=== PATIENT | female | born 1955 | race African-American/Black ===

== ENCOUNTER → 2020-06-25 | Outpatient (CLI) | payer OTHER ==
--- NOTE | 2020-06-25 14:42 | XR ---
Lumbar spine HISTORY: Lumbar pain 3 views lumbar spine Lumbar vertebral bodies show preserved height, alignment, and bone mineralization. There is some loss of disc height at L5-S1. Multilevel spondylosis is present. Sclerosis is present in the posterior el ements of the lower lumbar spine. Atherosclerotic vascular calcifications are present in the aorta il iac distribution. IMPRESSION: Degenerative disc disease and facet arthropathy.
== END | disposition home or self-care (01) ==
LOC: RADXRMAIN 13:10
PROVIDERS: ATTEND Internal Medicine
DX: M51.36 Other intervertebral disc degeneration, lumbar region (principal); M12.88 Other specific arthropathies, not elsewhere classified, other specified site
CPT/HCPCS: 72100

== ENCOUNTER 2022-04-29 11:53 | Emergency (ER) | payer OTHER ==
[2022-04-29 12:13] VITALS: BP 134/80; PULSE 68; RESP 20; TEMP 98.1
--- NOTE | 2022-04-29 12:47 | ED ---
General Adult HPI - General Chief complaint: Recheck/Abnormal Lab/Rx Stated complaint: rx refill Time Seen by Provider: 04/29/22 12:36 Source: patient, RN notes reviewed Mode of arrival: ambulatory Limitations: no limitations - History of Present Illness Initial comments: This a 66-year-old presents emergency room for medication refill. Patient is under hormonal therapy and she is transgender male to female. Patient states she is on her medications and needs refills her appointment is in one month. Patient denies any other associated symptoms. - Related Data Home Medications Medication Instructions Recorded Confirmed Amoxic-Pot Clav 875-125Mg 1 tab PO Q12HR 04/02/22 04/02/22 [Augmentin 875-125] Cyanocobalamin [Vitamin B-12 1,000 mcg SQ Q30D 04/02/22 04/02/22 Injection] Fluticasone Nasal [place] [Flonase 1 spray EA NOSTRIL DAILY 04/02/22 04/02/22 Nasal [place]] HYDROcodone/APAP 10-325MG [[place] 1 tab PO QID PRN 04/02/22 04/02/22 10-325] Ibuprofen [Motrin] 800 mg PO Q8H PRN 04/02/22 04/02/22 Previous Rx's Medication Instructions Recorded Ammonium Lactate Lotion 1 applic TOPICAL BID PRN #225 each 04/29/22 [Lac-Hydrin 12% Lotion] Loratadine [Claritin] 10 mg PO DAILY 30 Days #30 tab 04/29/22 Medroxyprogesterone Acetate 5 mg PO DAILY #30 tab 04/29/22 Pantoprazole [Protonix] 40 mg PO DAILY #30 tab 04/29/22 Spironolactone 100 mg PO BID #60 tab 04/29/22 estradioL 2 mg PO TID #90 tab 04/29/22 Allergies Allergy/AdvReac Type Severity Reaction Status Date / Time No Known Allergies Allergy Verified 04/29/22 12:13 Review of Systems ROS Statement: Those systems with pertinent positive or pertinent negative responses have been documented in the HPI. ROS Other: All systems not noted in ROS Statement are negative. Past Medical History Past Medical History: No Reported History History of Any Multi-Drug Resistant Organisms: None Reported Past Surgical History: No Surgical Hx Reported Past Psychological History: Anxiety, Bipolar, Depression Smoking Status: Current every day smoker Past Alcohol Use History: Occasional Past Drug Use History: Marijuana General Exam Limitations: no limitations General appearance: alert, in no apparent distress Head exam: Present: atraumatic, normocephalic, normal inspection Respiratory exam: Present: normal lung sounds bilaterally. Absent: respiratory distress, wheezes, rales, rhonchi, stridor Cardiovascular Exam: Present: regular rate, normal rhythm, normal heart sounds. Absent: systolic murmur, diastolic murmur, rubs, gallop, clicks Course Vital Signs 04/29/22 12:09 Temperature 98.1 F Pulse Rate 68 Respiratory 20 Rate Blood Pressure 134/80 O2 Sat by Pulse 98 Oximetry Medical Decision Making - Medical Decision Making Was pt. sent in by a medical professional or institution (, MECHE, MANAGER RESORT, urgent care, hospital, or senior living...) When possible be specific @ -No Did you speak to anyone other than the patient for history (EMS, parent, family, police, friend...)? What history was obtained from this source @ -No Did you review nursing and triage notes (agree or disagree)? Why? @ -I reviewed and agree with nursing and triage notes Were old charts reviewed (outside hosp., previous admission, EMS record, old E KG, old radiological studies, urgent care reports/EKG's, senior living records)? Report findings @ -No old charts were reviewed Differential Diagnosis (chest pain, altered mental status, abdominal pain women, abdominal pain men, vaginal bleeding, weakness, fever, dyspnea, syncope, headache, dizziness, GI bleed, back pain, seizure, CVA, palpatations, mental hea lth, musculoskeletal)? @ -Medication refill EKG interpreted by me (3pts min.). @ -As above X-rays interpreted by me (1pt min.). @ -None done CT interpreted by me (1pt min.). @ -None done U/S interpreted by me (1pt. min.). @ -None done What testing was considered but not performed or refused? (CT, X-rays, U/S, labs)? Why? @ -None What meds were considered but not given or refused? Why? @ -None Did you discuss the management of the patient with other professionals (professionals i.e. MECHE Walker, MANAGER RESORT, lab, RT, psych nurse, social service technician, kier operator, teacher, community services officer, case consultant)? Give summary @ -No Was smoking cessation discussed for >3mins.? @ -No Was critical care preformed (if so, how long)? @ -No Were there social determinants of health that impacted care today? How? (Homelessness, low income, unemployed, alcoholism, drug addiction, transportation, low edu. Level, literacy, decrease access to med. care, usp, rehab)? @ -No Was there de-escalation of care discussed even if they declined (Discuss DNR or withdrawal of care, Hospice)? DNR status @ -No What co-morbidities impacted this encounter? (DM, HTN, Smoking, COPD, CAD, Ca ncer, CVA, ARF, Chemo, Hep., AIDS, mental health diagnosis, sleep apnea, morbid obesity)? @ -None Was patient admitted / discharged? Hospital course, mention meds given and route, prescriptions, significant lab abnormalities, going to OR and other pertinent info. @ -Discharge patient was given prescription refills for her hormonal therapy Undiagnosed new problem with uncertain prognosis? @ -No Drug Therapy requiring intensive monitoring for toxicity (Heparin, Nitro, Insulin, Cardizem)? @ -No Were any procedures done? @ -No Diagnosis/symptom? @ -Medication refill, hormonal therapy Acute, or Chronic, or Acute on Chronic? @ -Acute Uncomplicated (without systemic symptoms) or Complicated (systemic symptoms)? @ -Uncomplicated Side effects of treatment? @ -No Exacerbation, Progression, or Severe Exacerbation? @ -No Poses a threat to life or bodily function? How? (Chest pain, [place], [place], pneumonia, PE, COPD, DKA, ARF, appy, cholecystitis, CVA, Diverticulitis, Homicidal, Suicidal, threat to staff... and all critical care pts) @ -No Disposition Clinical Impression: Encounter for medication refill, Ongoing treatment with hormonal therapy Disposition: HOME SELF-CARE Condition: Stable Additional Instructions: Please return to the Emergency Department if symptoms worsen or any other concerns. Prescriptions: Loratadine [Claritin] 10 mg PO DAILY 30 Days #30 tab estradioL 2 mg PO TID #90 tab Ammonium Lactate Lotion [Lac-Hydrin 12% Lotion] 1 applic TOPICAL BID PRN #225 each PRN Reason: Dry Skin Medroxyprogesterone Acetate 5 mg PO DAILY #30 tab Pantoprazole [Protonix] 40 mg PO DAILY #30 tab Spironolactone 100 mg PO BID #60 tab Is patient prescribed a controlled substance at d/c from ED?: No Referrals: None,Stated [Primary Care Provider] - 1-2 days Time of Disposition: 12:47
== END 2022-04-29 12:55 | disposition home or self-care (01) ==
LOC: EC 11:53
DX: Z76.0 Encounter for issue of repeat prescription (principal); Z79.890 Hormone replacement therapy; F41.9 Anxiety disorder, unspecified; F31.9 Bipolar disorder, unspecified; F17.200 Nicotine dependence, unspecified, uncomplicated; F12.90 Cannabis use, unspecified, uncomplicated
CPT/HCPCS: 99281

== ENCOUNTER 2022-05-28 15:35 | Emergency (ER) | payer OTHER ==
[2022-05-28 16:02] VITALS: BP 125/71; PULSE 75; RESP 16; TEMP 98
--- NOTE | 2022-05-28 17:27 | ED ---
Medical Clearance HPI - General Chief complaint: Medical Clearance Stated complaint: Wants Med Refill Time Seen by Provider: 05/28/22 17:09 Source: patient Mode of arrival: ambulatory - History of Present Illness Initial comments: Patient is a 66-year-old transgender female presenting for medication refill. Patient had an appointment with [facility] today which was abruptly canceled. She is requesting medication refills at this time, no physical complaints. No chest pain, difficulty breathing, abdominal pain, nausea, vomiting, headache, vision or hearing changes, URI-like symptoms, fever, chills. Home medications: Home Medications Medication Instructions Recorded Confirmed Amoxic-Pot Clav 875-125Mg 1 tab PO Q12HR 04/02/22 04/02/22 [Augmentin 875-125] Cyanocobalamin [Vitamin B-12 1,000 mcg SQ Q30D 04/02/22 04/02/22 Injection] Fluticasone Nasal [place] [Flonase 1 spray EA NOSTRIL DAILY 04/02/22 04/02/22 Nasal [place]] HYDROcodone/APAP 10-325MG [[place] 1 tab PO QID PRN 04/02/22 04/02/22 10-325] Ibuprofen [Motrin] 800 mg PO Q8H PRN 04/02/22 04/02/22 Previous Rx's Medication Instructions Recorded Ammonium Lactate Lotion 1 applic TOPICAL BID PRN #225 each 04/29/22 [Lac-Hydrin 12% Lotion] Loratadine [Claritin] 10 mg PO DAILY 30 Days #30 tab 04/29/22 Medroxyprogesterone Acetate 5 mg PO DAILY #30 tab 04/29/22 Pantoprazole [Protonix] 40 mg PO DAILY #30 tab 04/29/22 Spironolactone 100 mg PO BID #60 tab 04/29/22 estradioL 2 mg PO TID #90 tab 04/29/22 Ammonium Lactate Lotion 1 applic TOPICAL BID #225 ml 05/28/22 [Lac-Hydrin 12% Lotion] Loratadine [Claritin] 10 mg PO DAILY #30 tab 05/28/22 Medroxyprogesterone Acetate 5 mg PO DAILY #30 tablet 05/28/22 Nicotine 14Mg/24Hr Patch [Habitrol] 1 patch TRANSDERM DAILY #30 patch 05/28/22 Pantoprazole [Protonix] 40 mg PO DAILY #30 tab 05/28/22 Spironolactone 100 mg PO BID #60 tab 05/28/22 estradioL 2 mg PO TID #90 tab 05/28/22 Allergies/Adverse reactions: Allergies Allergy/AdvReac Type Severity Reaction Status Date / Time No Known Allergies Allergy Verified 04/29/22 12:13 Review of Systems ROS Statement: Those systems with pertinent positive or pertinent negative responses have been documented in the HPI. ROS Other: All systems not noted in ROS Statement are negative. Past Medical History Past Medical History: No Reported History History of Any Multi-Drug Resistant Organisms: None Reported Past Surgical History: No Surgical Hx Reported Past Psychological History: Anxiety, Bipolar, Depression Smoking Status: Current every day smoker Past Alcohol Use History: Occasional Past Drug Use History: Marijuana General Exam Limitations: no limitations General appearance: alert, in no apparent distress Head exam: Present: atraumatic, normocephalic, normal inspection Eye exam: Present: normal appearance, EOMI Neck exam: Present: normal inspection, full ROM Respiratory exam: Present: normal lung sounds bilaterally. Absent: respiratory distress, wheezes, rales, rhonchi, stridor Cardiovascular Exam: Present: regular rate, normal rhythm, normal heart sounds. Absent: systolic murmur, diastolic murmur, rubs, gallop, clicks Neurological exam: Present: alert, oriented X3, CN II-XII intact Psychiatric exam: Present: normal affect, normal mood Skin exam: Present: warm, dry, intact, normal color. Absent: rash Course Vital Signs 05/28/22 15:59 Temperature 98 F Pulse Rate 75 Respiratory 16 Rate Blood Pressure 125/71 O2 Sat by Pulse 98 Oximetry Medical Decision Making - Medical Decision Making Was pt. sent in by a medical professional or institution (, PA, ASSOCIATE ENTERTAINMENT EDITOR, urgent care, hospital, or custodial...) When possible be specific @ -No Did you speak to anyone other than the patient for history (EMS, parent, family, police, friend...)? What history was obtained from this source @ -No Did you review nursing and triage notes (agree or disagree)? Why? @ -I reviewed and agree with nursing and triage notes Were old charts reviewed (outside hosp., previous admission, EMS record, old EKG, old radiological studies, urgent care reports/EKG's, custodial records)? Report findings @ -No old charts were reviewed Differential Diagnosis (chest pain, altered mental status, abdominal pain women, abdominal pain men, vaginal bleeding, weakness, fever, dyspnea, syncope, headache, dizziness, GI bleed, back pain, seizure, CVA, palpatations, mental health, musculoskeletal)? @ -not applicable EKG interpreted by me (3pts min.). @ -As above X-rays interpreted by me (1pt min.). @ -None done CT interpreted by me (1pt min.). @ -None done U/S interpreted by me (1pt. min.). @ -None done What testing was considered but not performed or refused? (CT, X-rays, U/S, labs)? Why? @ -None What meds were considered but not given or refused? Why? @ -None Did you discuss the management of the patient with other professionals (professionals i.e. , PA, ASSOCIATE ENTERTAINMENT EDITOR, lab, RT, psych nurse, social work case manager, retail account executive, teacher, public records officer, casey saw operator)? Give summary @ -No Was smoking cessation discussed for >3mins.? @ -No Was critical care preformed (if so, how long)? @ -No Were there social determinants of health that impacted care today? How? (Homelessness, low income, unemployed, alcoholism, drug addiction, transportation, low edu. Level, literacy, decrease access to med. care, longterm, rehab)? @ -No Was there de-escalation of care discussed even if they declined (Discuss DNR or withdrawal of care, Hospice)? DNR status @ -No What co-morbidities impacted this encounter? (DM, HTN, Smoking, COPD, CAD, Cancer, CVA, ARF, Chemo, Hep., AIDS, mental health diagnosis, sleep apnea, morbid obesity)? @ -None Was patient admitted / discharged? Hospital course, mention meds given and route, prescriptions, significant lab abnormalities, going to OR and other pertinent info. @ -Patient is a 66-year-old transgender female presenting for medication refill. No physical complaints at this time. Physical examination is unremarkable. Refills are sent to her pharmacy she is instructed to follow-up with her PCP. Follow-up with PCP. Report back to ER with any new or worsening symptoms. Discussed return parameters and answered all questions. Patient conveyed verbal understanding and agreed to the plan. I discussed this case in detail with my attending Dr. Duque Undiagnosed new problem with uncertain prognosis? @ -No Drug Therapy requiring intensive monitoring for toxicity (Heparin, Nitro, Insulin, Cardizem)? @ -No Were any procedures done? @ -No Diagnosis/symptom? @ -Encounter for medication refill Acute, or Chronic, or Acute on Chronic? @ -Acute Uncomplicated (without systemic symptoms) or Complicated (systemic symptoms)? @ -Uncomplicated Side effects of treatment? @ -No Exacerbation, Progression, or Severe Exacerbation? @ -No Poses a threat to life or bodily function? How? (Chest pain, [place], [place], pneumonia, PE, COPD, DKA, ARF, appy, cholecystitis, CVA, Diverticulitis, Homicidal, Suicidal, threat to staff... and all critical care pts) @ -No Disposition Clinical Impression: Encounter for medication refill Disposition: HOME SELF-CARE Condition: Good Additional Instructions: Follow-up with [facility]CP at [facility]. Report back to ER with any new or worsening symptoms. Take medication as prescribed. Prescriptions: Loratadine [Claritin] 10 mg PO DAILY #30 tab estradioL 2 mg PO TID #90 tab Nicotine 14Mg/24Hr Patch [Habitrol] 1 patch TRANSDERM DAILY #30 patch Ammonium Lactate Lotion [Lac-Hydrin 12% Lotion] 1 applic TOPICAL BID #225 ml Medroxyprogesterone Acetate 5 mg PO DAILY #30 tablet Pantoprazole [Protonix] 40 mg PO DAILY #30 tab Spironolactone 100 mg PO BID #60 tab Is patient prescribed a controlled substance at d/c from ED?: No Referrals: [facility] [NON-[facility]FF] - 1-2 days Time of Disposition: 17:28
== END 2022-05-28 17:36 | disposition home or self-care (01) ==
LOC: EC 15:35
DX: Z76.0 Encounter for issue of repeat prescription (principal); F41.9 Anxiety disorder, unspecified; F31.9 Bipolar disorder, unspecified; F17.200 Nicotine dependence, unspecified, uncomplicated; F12.90 Cannabis use, unspecified, uncomplicated
CPT/HCPCS: 99281